=== PATIENT | female | born 1975 | race Caucasian/White ===

== ENCOUNTER 2024-11-27 08:07 | Outpatient (AMB) | payer MEDICAID, SELFPAY ==
[2024-11-27 08:24] VITALS: BP 114/78; PULSE 69; RESP 18; TEMP 36.4; O2SAT 97; BMI 25.0
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
--- NOTE | 2024-11-27 08:29 | XR_ITS ---
Examination:Left hip AP, lateral, AP pelvis 3 views Technique: Hip AP lateral, AP pelvis, 3 views Exam date and time:November 27, 2024 0840 hours INDICATIONS: Left hip pain post surgery 2 years ago. FINDINGS: Mild narrowing left hip joint No left or right hip fracture or dislocation Orthopedic screws traverse the iliac bones and sacrum IMPRESSION: Mild left hip joint osteoarthritis.
== END 2024-11-27 08:35 | disposition home or self-care (01) ==
PROVIDERS: PCP Family Medicine; Referring Provider Family Medicine; Supervising Provider Orthopaedic Surgery Adult Reconstructive Orthopaedic Surgery; Visit Provider Orthopaedic Surgery Adult Reconstructive Orthopaedic Surgery
DX: M25.552 Pain in left hip (principal); M54.50 Low back pain, unspecified; M16.12 Unilateral primary osteoarthritis, left hip
CPT/HCPCS: 73502; 99213; G0463

== ENCOUNTER 2024-11-27 09:30 | Outpatient (RCR) | payer MEDICAID, SELFPAY ==
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
--- NOTE | 2024-11-18 10:03 | PT.ODAYNRPT ---
PT Outpatient Daily Note OP Daily Note Outpatient Physical Therapy Treatment Date: 11/18/24 Visit Reasons: Fracture of left hip Subjective: Pt's hip feels okay. Pt still has pain with prolonged standing and walking. Objective: Please see flow chart for list of ther ex performed Assessment: tolerate exercises with minimal pain. Cues to decrease left foot dragging with side step Plan: Continue with PT Length of Time (minutes) of Treatment: 30 Minutes Procedure Charges Therapeutic Exercise 30 minutes: Yes
--- NOTE | 2024-11-20 09:56 | PT.ODAYNRPT ---
PT Outpatient Daily Note OP Daily Note Outpatient Physical Therapy Treatment Date: 11/20/24 Visit Reasons: Fracture of left hip Subjective: Pt feels that her hip feels shorter. Pt continue to have left hip pain with activities. Objective: Please see flow chart for list of ther ex performed Assessment: educated patient regarding her gait and leg length which is normal to feel one leg shorter vs longer with antalgic gait. Pt gave verbal understanding. Cues to pace throughout PT session Plan: Continue with PT Length of Time (minutes) of Treatment: 30 Minutes Procedure Charges Therapeutic Exercise 30 minutes: Yes
--- NOTE | 2024-11-25 10:42 | PT.ODAYNRPT ---
PT Outpatient Daily Note OP Daily Note Outpatient Physical Therapy Treatment Date: 11/25/24 Visit Reasons: Fracture of left hip Subjective: Pt reports hip has been feeling better these last few days. Objective: Please see flow sheet for ther ex list. Assessment: Pt tolerated interventions with minimal pain. Plan: Continue with pOC. Length of Time (minutes) of Treatment: 30 Minutes Procedure Charges Therapeutic Exercise 30 minutes: Yes
--- NOTE | 2024-11-27 11:34 | PT.ODAYNRPT ---
PT Outpatient Daily Note OP Daily Note Outpatient Physical Therapy Treatment Date: 11/27/24 Visit Reasons: Fracture of left hip Subjective: Pt reports she is in more pain, notices since her hip fracture her menstrual cycles have become more painful. Objective: Please see flow sheet for ther ex list. Assessment: Regressed interventions to accommodate pain reported. Plan: Continue with POC. Length of Time (minutes) of Treatment: 30 Minutes Procedure Charges Therapeutic Exercise 30 minutes: Yes
== END 2024-12-08 23:59 | disposition home or self-care (01) ==
LOC: CPTX 09:30
DX: M25.552 Pain in left hip (principal); R26.2 Difficulty in walking, not elsewhere classified; R26.89 Other abnormalities of gait and mobility; S32.502D Unspecified fracture of left pubis, subsequent encounter for fracture with routine healing; V89.2XXD Person injured in unspecified motor-vehicle accident, traffic, subsequent encounter
CPT/HCPCS: 97110; 97162

== ENCOUNTER 2024-12-04 08:12 | Outpatient (AMB) | payer MEDICAID, SELFPAY ==
[2024-12-04 08:23] VITALS: BP 116/69; PULSE 67; RESP 16; TEMP 36.7; O2SAT 98; BMI 24.8
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
== END 2024-12-04 08:40 | disposition home or self-care (01) ==
LOC: HODSRG 08:12
PROVIDERS: PCP Family Medicine; Referring Provider Family Medicine; Supervising Provider Orthopaedic Surgery Adult Reconstructive Orthopaedic Surgery; Visit Provider Orthopaedic Surgery Adult Reconstructive Orthopaedic Surgery
DX: M25.552 Pain in left hip (principal); M54.50 Low back pain, unspecified; Z98.890 Other specified postprocedural states
CPT/HCPCS: 99213; G0463

== ENCOUNTER 2025-01-06 09:30 | Outpatient (RCR) | payer MEDICAID, SELFPAY ==
--- NOTE | 2024-12-09 10:47 | PT.ODAYNRPT ---
PT Outpatient Daily Note OP Daily Note Outpatient Physical Therapy Treatment Date: 12/09/24 Visit Reasons: Fracture of left hip Subjective: Pt reports hip is feeling a little better today compared to last PT session. Objective: Please see flow sheet for ther ex list. Assessment: Pt demonstrates increase tolerance to interventions assigned. Plan: Continue with poC. Length of Time (minutes) of Treatment: 30 Minutes Procedure Charges Therapeutic Exercise 30 minutes: Yes
--- NOTE | 2024-12-11 09:36 | PT.ODAYNRPT ---
PT Outpatient Daily Note OP Daily Note Outpatient Physical Therapy Treatment Date: 12/11/24 Visit Reasons: Fracture of left hip Subjective: Pt reports hip is feeling a little better today. Objective: Please see flow sheet for ther ex list. Assessment: Added interventions completed with good tolerance. Plan: Continue with poC. Length of Time (minutes) of Treatment: 30 Minutes Procedure Charges Therapeutic Exercise 30 minutes: Yes
--- NOTE | 2024-12-24 13:34 | PT.ODAYNRPT ---
PT Outpatient Daily Note OP Daily Note Outpatient Physical Therapy Treatment Date: 12/24/24 Visit Reasons: Fracture of left hip Subjective: Pt reports L hip is doing ok, feels progress is slow. Objective: Please see flow sheet for ther ex list. Assessment: Pt demonstrates high pain with active hip abduction, avoid isotonic hip abduction. Plan: Continue with POC. Length of Time (minutes) of Treatment: 30 Minutes Procedure Charges Therapeutic Exercise 30 minutes: Yes
--- NOTE | 2024-12-26 11:07 | PT.ODAYNRPT ---
PT Outpatient Daily Note OP Daily Note Outpatient Physical Therapy Treatment Date: 12/26/24 Visit Reasons: Fracture of left hip Subjective: Pt's left hip still sore and stiff in the front of the thigh. Pt notice more stiffness than usual this morning. Objective: Please see flow chart for list of ther ex performed Assessment: difficulty with figure four stretch due to hip flexor tightness and guarding due to pain. Pt instructed to gradually stretch into position which she tolerate well Plan: Continue with PT Length of Time (minutes) of Treatment: 30 Minutes Procedure Charges Therapeutic Exercise 30 minutes: Yes
--- NOTE | 2024-12-30 12:07 | PT.ODAYNRPT ---
PT Outpatient Daily Note OP Daily Note Outpatient Physical Therapy Treatment Date: 12/30/24 Visit Reasons: Fracture of left hip Subjective: Pt ridge has pain with sitting and bending down. Pt mentioned she doesn't know if she can return back to her old work. Objective: Please see flow chart for list of ther ex performed Assessment: progressing with hip flexion AROM and decrease pain noted with figure 4 stretch. Pt educated that due to nature of the fracture and ORIF Pt may not completely feel 100% or be able to perform certain functional tasks at normal capacity. Pt gave verbal understanding Plan: Continue with PT Length of Time (minutes) of Treatment: 30 Minutes Procedure Charges Therapeutic Exercise 30 minutes: Yes
--- NOTE | 2025-01-01 09:43 | PT.ODAYNRPT ---
PT Outpatient Daily Note OP Daily Note Outpatient Physical Therapy Treatment Date: 01/01/25 Visit Reasons: Fracture of left hip Subjective: Pt's hip feels okay minimal change in pain with sitting. Objective: Please see flow chart for list of ther ex performed Assessment: progressing with figure four stretch and demonstrate improved form with less pain reported in the anterior groin region Plan: Continue with PT Length of Time (minutes) of Treatment: 30 Minutes Procedure Charges Therapeutic Exercise 30 minutes: Yes
--- NOTE | 2025-01-06 09:50 | PT.ODS1RPT ---
PT OP Progress/Discharge Note Date of Service: 01/06/25 Progress Note/DC Note Progress Note/Discharge Note: DC Note Patient Information Visit Reasons: Fracture of left hip Medical Diagnosis: s32.502d Treatment Dx #1: Left Pubis Fracture Treatment Dx #2: Left Hip Pain Service Discharge Date: 01/06/25 Status Subjective: Pt's hip continues to hurt but less intense lately. Pt has been able to walk, stand, perform chores, and ADLs with less limitation. Pt has been forcing herself to move beyond the pain because she wants to get better. At this time Pt feels comfortable being release from care with exercises to continue at home. Objective: Left Hip FLexion AROM: 110 deg Abduction: 45 deg External Rotation: 20 deg with pain Internal Rotation: 25 deg Extension: 15 deg Left Hip MMTs: grossly 4-/5 SLS: 10 sec Assessment: Pt exhibit slight improvement with left hip AROM and strength, however, not much significant changes since starting physical therapy leading to limitation with certain ADLs. Despite Pt's current limitation Pt has been to walk longer, stand, and perform chores around the house. At this time Pt will no longer benefit from physical therapy due to plateau towards goals. Pt was instructed on HEP last session and educated to continue exercises to maintain overall mobility. Pt performed all exercises safely, thank you for your referrals. Plan: D/C home with HEP and follow up with provider PRN Procedure Charges Therapeutic Exercise 30 minutes: Yes
== END 2025-01-08 23:59 | disposition home or self-care (01) ==
LOC: CPTX 09:30
PROVIDERS: PCP Family Medicine; Referring Provider Family Medicine; Visit Provider Family Medicine
DX: M25.552 Pain in left hip (principal); R26.2 Difficulty in walking, not elsewhere classified; R26.89 Other abnormalities of gait and mobility; S32.502D Unspecified fracture of left pubis, subsequent encounter for fracture with routine healing; V89.2XXD Person injured in unspecified motor-vehicle accident, traffic, subsequent encounter
CPT/HCPCS: 97110